=== PATIENT | male | born 1930 | race Caucasian/White ===

== ENCOUNTER 2019-09-22 07:28 | Inpatient (IN) ==
--- NOTE | 2019-09-22 08:25 | PROVIDER DOCUMENTATION ---
HPI-Male Problem - General Chief Complaint: Male Stated Complaint: PEEING BLOOD Time Seen by Provider: 09/22/19 08:00 Source: patient, family ( at bedside) Allergies/Adverse Reactions: Patient Allergies Allergy/AdvReac Type Severity Reaction Status Date / Time No Known Allergies Allergy Verified 09/22/19 08:54 Home Medications: Home Medication List Medication Instructions Recorded Confirmed Last Taken Type ATORVAstatin [Lipitor] 40 mg PO DAILY 09/21/19 09/22/19 09/21/19 History Carvedilol 6.25 mg PO DAILY 09/21/19 09/22/19 09/21/19 History Furosemide 40 mg PO DAILY 09/21/19 09/22/19 09/21/19 History Glimepiride 4 mg PO BID 09/21/19 09/22/19 09/21/19 History Sacubitril/Valsartan [Entresto 24 1 tab PO DAILY 09/21/19 09/22/19 09/21/19 History mg-26 mg Tablet] Tamsulosin [Flomax] 0.4 mg PO DAILY #30 cap 09/25/19 Unknown Rx - History of Present Illness-Male Nature of Presenting Problem: 89 YO M pmh for CHF presents with c/o fatigue and weakness. He states he has been having hematuria for 3 months. He went to urology on yesterday and had labs drawn and he was shown to be anemic. He was told to come to the ED for abnormal labs. He follows with Dr. Leiva for urology. He currently denies any pain. He is not on any anticoagulants. He states he has a procedure scheduled for 2 days from now for workup for his hematuria. Severity in ED: reports: mild Onset/Duration: reports: 1 week ago (weakness and fatigue, hematuria x 3 months) Timing: reports: still present, constant Context/Activities at Onset: reports: none Urinary Symptoms: reports: hematuria. denies: retention Similar Symptoms Previously?: Yes Recently seen or treated by another doctor?: Yes Review of Systems - Adult - REVIEW OF SYSTEMS - ADULT Constitutional: denies: chills, fever Eyes: reports: no symptoms reported Ears, Nose, Mouth & Throat: reports: no symptoms reported Cardiovascular: denies: chest pain, edema Respiratory: denies: shortness of breath, wheezing Gastrointestinal: denies: abdominal pain, constipation, nausea, rectal bleeding, vomiting Genitourinary: reports: see HPI, hematuria. denies: dysuria Musculoskeletal: reports: no symptoms reported Integumentary: reports: no symptoms reported Neurological: reports: no symptoms reported Psychiatric: reports: no symptoms reported Endocrine: reports: no symptoms reported Hematologic/Lymphatic: reports: prolonged bleeding. denies: blood clots, easy bruising Allergic/Immunologic: reports: no symptoms reported Past History - Adult - PAST MEDICAL HISTORY-ADULT Review of Records: reports: Old Records Reviewed, Medications Reviewed, Social history reviewed & non-contributory. Major Childhood Illnesses: reports: denies history Cardiovascular: reports: CHF Diabetes Type: Type 2 Diabetes controlled by:: PO Meds Other Conditions: reports: deaf/hard of hearing - PRIOR SURGERIES/PROCEDURES Surgical/Procedure History: denies: recent surgery - FAMILY HISTORY Family History: reviewed, not pertinent - SOCIAL HISTORY Smoking: denies Substance Use: denies Living Situation: family Physical Exam-General - PHYSICAL EXAM-ADULT Initial Vital Signs Reviewed: Yes - CONSTITUTIONAL General Appearance: alert, no apparent distress - EYES Eyes: PERRL/EOMI, pale conjunctivae - HEAD, EARS, NOSE, MOUTH & THROAT HENMT: hearing deficit - NECK Neck: supple - RESPIRATORY Respiratory: lungs clear - CARDIOVASCULAR Cardiovascular: regular rate, rhythm, no edema - GASTROINTESTINAL (ABDOMEN) Abdominal Exam: normal bowel sounds, non tender, soft. negative: hernia, mass - MUSCULOSKELETAL Back Exam: no CVA tenderness Extremity: normal range of motion, normal gait, normal inspection - SKIN Integumentary: pallor (mild) - NEUROLOGIC Neurologic: grossly normal, no motor/sensory deficits - PSYCHIATRIC Psych/Mental Status: normal mood/affect, normal thought content, oriented x 3 Progress - PLAN OF CARE/RESULTS Progress/Plan/Lab Results: Orders Category Date Time Status Admit - [facility] Routine AdmDCTranf 09/22/19 11:25 Active Activity - Up with Assistance ORDERED Care 09/22/19 11:25 Active Apply Mechanical Device [QM] ORDERED Care 09/22/19 11:25 Active Cardiac Monitoring DIRECTED Care 09/22/19 08:19 Completed FSBS/Accucheck Result AC + HS Care 09/22/19 11:25 Active Intake and Output-Strict ORDERED Care 09/22/19 11:25 Active Nursing- Assist w/ IS as order ORDERED Care 09/22/19 11:25 Active Nursing- MD Consult Request ROUTINE Care 09/22/19 11:25 Completed Vital Signs Order Q 8-HR ASSESS Care 09/22/19 11:25 Active Z-Document. for Tele Applied ORDERED Care 09/22/19 11:25 Completed Physician/Provider Consults Routine Cons 09/22/19 11:25 Ordered Heart Healthy Diet Diet 09/22/19 11:25 Completed A1C HGB W EST AVG GLUCOSE [CHEM] Routine Lab 09/23/19 04:57 Completed CBC WITH DIFF [HEME] DAILY Lab 09/23/19 04:57 Completed CBC WITH DIFF [HEME] DAILY Lab 09/24/19 06:40 Completed CBC WITH DIFF [HEME] DAILY Lab 09/25/19 07:05 Completed CBC WITH ELECTRONIC DIFF [HEME] Stat Lab 09/22/19 08:43 Completed COMPREHENSIVE METABOLIC PANEL [CHEM] Routine Lab 09/23/19 04:57 Completed COMPREHENSIVE METABOLIC PANEL [CHEM] Stat Lab 09/22/19 08:43 Completed HEMATOCRIT [HEME] Timed Lab 09/22/19 21:54 Completed HEMOGLOBIN [HEME] Timed Lab 09/22/19 21:54 Completed PRBC [LRPC (RED CELLS)] [BBK] Stat Lab 09/22/19 08:43 Completed TYPE & SCREEN [BBK] Stat Lab 09/22/19 08:43 Completed URINALYSIS W/POSS RFLX CULT [URINALYSIS] Stat Lab 09/22/19 08:07 Completed URINE CULTURE [RM] Routine Lab 09/22/19 08:07 Completed ATORVAstatin [Lipitor] Med 09/23/19 09:00 Discontinued 40 mg PO DAILY Acetaminophen [Tylenol] Med 09/22/19 11:25 Discontinued 650 mg PO Q6H PRN PRN Carvedilol [Coreg] Med 09/23/19 09:00 Discontinued 6.25 mg PO DAILY CefTRIAXONE [Rocephin] 1 gm Med 09/22/19 10:17 Discontinued 0.9% Sodium Chloride Inj [Ns] 50 ml IV NOW CefTRIAXONE [Rocephin] 1 gm Med 09/23/19 10:30 Discontinued 0.9% Sodium Chloride Inj [Ns] 50 ml IV Q24H Glimepiride [Amaryl] Med 09/22/19 21:00 Discontinued 4 mg PO BID Insulin Lispro [Humalog] Med 09/22/19 11:25 Discontinued See Protocol SUBQ 0700,1100,1600,2100 Ondansetron [Zofran] Med 09/22/19 11:25 Discontinued 4 mg IV Q4H PRN PRN Incentive Spirometer Routine Oth 09/22/19 11:25 Completed Telemetry [OM.EQ] Routine Oth 09/22/19 11:25 Active EKG [EKG] Stat Ther 09/22/19 08:19 Draft Transfer/Admit Order [TRANSFER] Routine Transfer 09/22/19 10:21 Completed Result Diagrams: 09/25/19 07:05 09/25/19 07:05 - EKG 1 Time of EKG reading by physician:: 09:09 EKG Read and Signed by:: Wesly Gavin Rate: 65 Rhythm: sinus with fusion complexes QRS: RBB IA Interval: normal ST Wave: normal Prior EKG Comparison: no prior EKG - CONSULTS/PCP/HOSPITALIST Notification #1 *Consult/PCP/Hospitalist*: Dr. Leiva Time Discussed: 10:02 Consult Disposition: other (states pt had low blood counts on pre-op workup, has ongoing hematuria, would like to get a CT scan w/o contrast and would like to admit to the hospitalist. Pt has procedure scheduled for ) #2 Consult: Gracie, will admit to hospitalist Time Discussed: 10:20 Consult Disposition: Will see in ED Departure - Departure Date of Disposition Decision: 09/22/19 Time of Disposition Decision: 10:19 DIAGNOSIS: Hematuria, Acute blood loss anemia Disposition: ADMITTED INPATIENT 09 Certified Medical Emergency: Emergent Condition: Stable - Critical Care Note This patient required my direct & personal management of CC.: No Attestation - Physician/ NERISSA Attestation Patient care was provided by Advanced Practice Provider:: No The physician spent face to face time with patient:: Yes Advanced Practice Provider documentation review:: Supervising physician onsite and consulted in the evaluation and care of this patient. The physician did have a face to face encounter with the patient.
[2019-09-22 09:02] LABS: URINE SOURCE CLEAN CATCH
[2019-09-22 09:11] LABS: BASO# 0.01 X1000 (0.0-0.2); BASO% 0.1 % (0.0-0.8); EOS# 0.05 X1000 (0.0-0.7); EOS% 0.7 % (0.0-10.0); IMM GRAN# 0.03 X1000 (0.0-0.04); IMM GRAN% 0.4 % (0.0-0.5); LYMPH# 1.12 X1000 (1.2-3.4); LYMPH% 15.3 % (20.5-51.1); MCH 28.8 PG (27-31); MCHC 30.4 g/dL (33-37); MCV 94.7 FL (81-99); MONO# 0.44 X1000 (0.11-0.59); MPV 11.6 FL (7.4-10.4); NEUT# 5.69 X1000 (1.4-6.5); NEUT% 77.5 % (42.2-75.2); PLT 128 X1000 (130-400); RBC 2.43 XMIL (4.7-6.1); RDW 16.4 % (11.5-14.5); WBC 7.34 X1000 (4.8-10.8)
[2019-09-22 09:12] LABS: COLOR RED; TURBIDITY URINE TURBID (CLEAR); URINE RBC TNTC /HPF (<10); URINE WBC TNTC /HPF (<10)
[2019-09-22 09:13] LABS: BILIRUBIN URINE NEGATIVE (NEGATIVE); BLOOD URINE LARGE (NEGATIVE); KETONE URINE NEGATIVE (NEGATIVE); LEUKOCYTES URINE NEGATIVE (NEGATIVE); NITRITE URINE NEGATIVE (NEGATIVE); PH URINE 6.5; SP GRAVITY URINE 1.025; UROBILINOGEN URINE NORMAL (NORMAL)
[2019-09-22 09:25] LABS: ALB/GLOB RATIO 1.6; ALBUMIN 3.5 g/dL (3.5-5.0); CALCIUM 8.7 mg/dL (8.8-10.2); POTASSIUM 4.9 mmol/L (3.5-5.1); TOTAL BILIRUBIN 0.22 mg/dL (0.20-1.00); TOTAL PROTEIN 5.7 g/dL (6.3-8.3)
--- NOTE | 2019-09-22 09:27 | EKG Report ---
Test Performed on : 09/22/2019 09:09:27 AM Test Reason : CP Blood Pressure : / mmHG Vent. Rate : 065 BPM Atrial Rate : 065 BPM P-R Int : 188 ms QRS Dur : 130 ms QT Int : 472 ms P-R-T Axes : 063 -05 093 degrees QTc Int : 490 ms Sinus rhythm. with fusion complexes Right bundle branch block Abnormal ECG When compared with ECG of 21-SEP-2019 14:02, (Unconfirmed) fusion complexes are now present Left posterior fascicular block is no longer present Nonspecific T wave abnormality now evident in Inferior leads T wave inversion now evident in Anterior leads Unconfirmed Result
[2019-09-22] MEDS ORDERED: ROCEPHIN 1 GM in NS 50 ML IV ONE (10:17)
[2019-09-22 10:46] LABS: GLUCOSE URINE 200 mg/dL (NEGATIVE); PROTEIN URINE 200 mg/dL (NEGATIVE)
[2019-09-22] MEDS: HUMALOG SUBQ SCH ×2 (11:25→18:11)
[2019-09-22] MEDS ORDERED: TYLENOL PO PRN (11:25)
[2019-09-22] MEDS ORDERED: ZOFRAN IV PRN (11:25)
[2019-09-22] MEDS ORDERED: NS 500 ML IV ONE (11:55)
[2019-09-22] MEDS ORDERED: NS 500 ML ONE (11:57)
[2019-09-22] MEDS ORDERED: ROCEPHIN ONE (16:18)
[2019-09-22] MEDS ORDERED: NS 50 ML ONE (16:19)
--- NOTE | 2019-09-22 19:26 | HISTORY AND PHYSICAL ---
PRIMARY CARE PROVIDER: Samira Resendez out of [place]. CHIEF COMPLAINT: Low blood count. Hematuria. HISTORY OF PRESENT ILLNESS: Mr. Villanueva is an 89-year-old gentleman who carries a past medical history of congestive heart failure, diabetes mellitus, hyperlipidemia, [place] without intervention years ago, anemia who has had blood transfusions in the past, hard of hearing with hearing aids who reports for the last several months he has had blood in his urine. He went to see Dr. Leiva. They him scheduled for a cystoscopic exam on . When they did his blood work yesterday, his hemoglobin and hematocrit were low. He was recommended to come to the ED. Hemoglobin and hematocrit today are 7 and 23. He does report generalized weakness, but no chest pain, shortness of breath, dizziness, nausea, vomiting, fever, or chills. No dysuria. Positive for gross hematuria. He was typed and screened and started on 2 units of packed red blood cells. He is hemodynamically stable. He does appear to have chronic kidney disease. We will hold his Entresto and Lasix overnight and recheck his kidney function in the a.m. PAST MEDICAL HISTORY: Per HPI. PAST SURGICAL HISTORY: Bilateral cataract. Fibrous cyst on neck removed. FAMILY HISTORY: Reviewed and noncontributory. SOCIAL HISTORY: He is hard of hearing with hearing aids. He is from [place]. He is . He is retired from sales of building supplies. 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 He was an ex-smoker 50 years ago, 3 packs per day. No alcohol or illicit drug use. PHYSICAL EXAMINATION: VITAL SIGNS: Temperature is 97.9 degrees, heart rate 75, respirations 20, blood pressure 165/77, O2 is 100% on room air. GENERAL: Mr. Villanueva is a pleasant 89-year-old male who is sitting up on the bed in no acute distress. HEENT: He is hard of hearing with hearing aids. Atraumatic, normocephalic. PERRL. NECK: Supple. Trachea midline. CARDIOVASCULAR: S1, S2 appreciated. No murmurs, gallops, rubs noted. RESPIRATORY: Lung sounds clear bilaterally. GI: Soft, nontender, nondistended. Positive bowel sounds 4 quadrants. LOWER EXTREMITIES: Does have some generalized edema. NEUROLOGIC: No focal deficits noted. DIAGNOSTIC DATA: EKG shows a sinus rhythm with fusion complexes and a right bundle-branch block at 65 beats per minute. LABORATORY DATA: White count 7, hemoglobin and hematocrit 7 and 23, platelet count 128,000. Sodium 141, potassium 4.9, BUN 39, creatinine 2, blood glucose is 295. Urinalysis, too numerous to count RBCs, too numerous to count WBCs, not reportable bacteria, large blood, negative nitrites, 200 glucose, urine protein. ASSESSMENT AND PLAN: 1. Gross hematuria. The patient does have cystoscopy planned with Dr. Leiva on . He requests admission. We will follow along with the patient. 2. Anemia secondary to gross hematuria as well as chronic disease. He is currently being transfused with 2 units. We will recheck his hemoglobin and hematocrit. Continue to monitor. He is currently hemodynamically stable. 3. Probable urinary tract infection. He is on Rocephin. We will continue that and await his urine culture. However, he is not complaining of any dysuria. 4. Probable chronic kidney disease with possible acute kidney injury. He is on Entresto as well as Lasix at home. We will hold those 2 medications overnight to see if there is any improvement in his hemoglobin and hematocrit. His kidney function does not show any change from his laboratory data that was taken yesterday. 5. Congestive heart failure. Again, we have held his Entresto as well as his Lasix. We will continue his beta tu. 6. Diabetes mellitus. We will continue his glimepiride. Place him on pattern blood sugars with sliding scale. Check hemoglobin A1c. 7. Hyperlipidemia. Continue his statin. 8. Further recommendation to follow physician evaluation, laboratory and diagnostic data. Dictated by ELLEN Willis for Moncho Espinoza MD Addendum: Patient seen and examined by myself. Agree with BATTER SCALER note. It reflects my assessment and plan. Patient is being admitted to hospital for persistent gross hematuria. Will transfuse one unit of blood and monitor CBC daily and consult Urology. Will monitor patient closely. cc: MD Jitendra Park MD Belinda Maples [facility]ITAL[facility]olanda
[2019-09-22] MEDS: AMARYL PO SCH (21:00)
[2019-09-22 21:58] LABS: HEMATOCRIT 27.3 % (42.0-52.0); HEMOGLOBIN 8.6 g/dL (14.0-18.0)
[2019-09-23 05:35] LABS: BASO# 0.01 X1000 (0.0-0.2); BASO% 0.1 % (0.0-0.8); EOS# 0.11 X1000 (0.0-0.7); EOS% 1.5 % (0.0-10.0); HEMATOCRIT 26.2 % (42.0-52.0); HEMOGLOBIN 8.3 g/dL (14.0-18.0); IMM GRAN# 0.03 X1000 (0.0-0.04); IMM GRAN% 0.4 % (0.0-0.5); LYMPH# 1.19 X1000 (1.2-3.4); LYMPH% 15.8 % (20.5-51.1); MCH 28.8 PG (27-31); MCHC 31.7 g/dL (33-37); MONO% 10.6 % (1.7-9.3); MPV 11.3 FL (7.4-10.4); NEUT% 71.6 % (42.2-75.2); PLT 130 X1000 (130-400); RBC 2.88 XMIL (4.7-6.1); RDW 16.8 % (11.5-14.5); WBC 7.54 X1000 (4.8-10.8)
[2019-09-23 06:39] LABS: ALB/GLOB RATIO 1.7; ALBUMIN 3.3 g/dL (3.5-5.0); CALCIUM 8.5 mg/dL (8.8-10.2); CREATININE 1.8 mg/dL (0.7-1.2); POTASSIUM 4.1 mmol/L (3.5-5.1); TOTAL BILIRUBIN 0.46 mg/dL (0.20-1.00); TOTAL PROTEIN 5.2 g/dL (6.3-8.3)
[2019-09-23] MEDS: HUMALOG SUBQ SCH ×3 (08:28→14:19)
--- NOTE | 2019-09-23 08:50 | Diag Imaging Result Doc PS360 ---
EXAM: CT ABDOMEN/PELVIS W/O CONTRAST INDICATION: Elevated PSA, 3 month history of hematuria, Anemia TECHNIQUE: This exam was performed using automated exposure control, adjustment of mA or kV according to patient size, and/or use of iterative reconstruction technique. COMPARISON: None. FINDINGS: There are bilateral small pleural effusions at the bases. There is interstitial thickening at the bases indicating mild pulmonary edema. There is cardiomegaly. The gallbladder, liver, spleen, and pancreas are grossly unremarkable. There is mild low dense nodular thickening of the adrenal glands likely representing underlying adenomas. There are several cystic-appearing renal foci. A few of the cystic appearing lesions bilaterally exhibit densities higher than that of simple fluid. These likely represent cysts containing blood products or proteinaceous debris. However, they are technically indeterminate. There is ill-defined hyperdense material at the posterior wall of the urinary bladder. This probably represents blood products. A mass cannot completely be excluded with unenhanced CT. If not contraindicated, contrast-enhanced CT of the abdomen and pelvis would be helpful. Otherwise, consider ultrasound. The prostate is enlarged. No significant pelvic or abdominal lymphadenopathy is appreciated. No focal bowel wall thickening or bowel obstruction is identified. The remainder of the GI tract is grossly unremarkable. There is extensive aortoiliac atherosclerotic calcification. There is advanced multilevel degenerative arthropathy throughout the visualized spine. There is nothing that would suggest local bony metastatic disease. IMPRESSION: 1.Hyperdense material at the posterior aspect of the urinary bladder that probably represents blood products. However, underlying mass is not excluded with unenhanced CT. 2.Enlarged prostate. 3.Multiple renal cysts with a few exhibiting increased density as compared to simple fluid likely representing internal blood products or proteinaceous debris but are technically indeterminate on unenhanced CT. 4.Small bibasilar pleural effusions and mild interstitial edema. 5.Other incidental/nonacute findings detailed above. Electronically signed by Carl Biggs 09/23/2019 8:48 AM
[2019-09-23] MEDS: ROCEPHIN 1 GM in NS 50 ML IV SCH (09:59)
[2019-09-23] MEDS: COREG PO SCH (09:59)
[2019-09-23] MEDS: AMARYL PO SCH ×2 (09:59→22:11)
[2019-09-23] MEDS: LIPITOR PO SCH (09:59)
[2019-09-23] MEDS ORDERED: PYRIDIUM PO PRN (10:58)
[2019-09-23] MEDS ORDERED: PROSCAR PO ONE (10:58)
--- NOTE | 2019-09-23 11:42 | PROGRESS NOTE ---
DATE: 09/23/2019 SUBJECTIVE: Patient reports continues to have bleeding. He got 1 unit of blood transfused and hemoglobin has increased to 8.3 today. OBJECTIVE: Vital Signs: Temperature 98.6, heart rate 72, respiratory 18, blood pressure 165/83, O2 saturation 97% on room air. General: This is an 89-year-old, male, lying in bed, in no acute distress. Cardiovascular: S1, S2 heard. No murmurs, gallops, or rubs. Regular rate and rhythm. Respiratory: Clear bilaterally to auscultation. No work of breathing or using accessory muscles. Abdomen: Soft, mildly tender to palpation in the suprapubic area with Uribe catheter in place with bloody urine. Extremities: No clubbing, cyanosis, or edema. Peripheral pulses present in both legs. Neurological: Patient alert, oriented x3. Moves 4 extremities. LABORATORY DATA: Hemoglobin is 8.3. White cell count 5.54, hematocrit 26.2 with BMP that reveals creatinine 1.8. A1c of 6.0. ASSESSMENT AND PLAN: 1. Gross hematuria. Patient has evaluated by Dr. Leiva. They have ordered a CT of the abdomen and pelvis which basically showed hyperdensity at the at the posterior aspect of the urinary bladder that most likely represent blood products, enlarged prostate, multiple renal cysts, with small bibasilar pleural effusions and mild interstitial edema. 2. At this point, patient is going to have cystoscopy tomorrow. We have transfused 1 unit of blood and we will keep checking CBC to see if we may transfuse more blood. Most likely, we will considering that he continues to have hematuria. 3. Anemia of blood loss. We will continue checking CBC daily. 4. Chronic kidney disease. At this point, we will continue to monitor this patient with BMP daily. 5. Congestive heart failure. Entresto has been held as well as Lasix. We will continue with beta tu. 6. Diabetes mellitus type 2. We will continue with sliding scale insulin and Accu-Chek before meals and also at bedtime. cc: MD MOJGAN Park
--- NOTE | 2019-09-23 18:21 | CONSULTATION ---
DATE OF CONSULTATION: 09/23/2019 CHIEF COMPLAINT: 1. Hematuria. 2. Anemia. 3. Elevated PSA. HISTORY OF PRESENT ILLNESS: Mr. Villanueva is an 89-year-old with congestive heart failure, diabetes, hyperlipidemia, prior [place], with chronic anemia, who presents in consultation regarding gross hematuria. Patient states he has had hematuria for 3 months now. The patient underwent evaluation in the office last Saturday with significant hematuria and subsequently underwent cystoscopy in the office, which was difficult to see due to the bloody urine. Uncertain what is leading to this, and due to difficulty visualization we recommended anesthetic cystoscopy, bilateral retrograde pyelograms to assess further. The patient had a renal ultrasound with no masses, hydronephrosis, or tumors within either kidney. In talking with him regarding surgery, he elected to proceed. He went to preop testing and was found to have hemoglobin and hematocrit of 7 and 23. I encouraged him to go the emergency room for evaluation and preoperative blood transfusion. The patient reports having weakness, occasional lightheadedness, but denies chest pain, shortness of breath, fevers or chills. The patient has had multiple urine cultures, which showed no bacteria. The patient recently had a PSA drawn, which returned at 75. The patient also had a 4K score which returned elevated at 94% with high concern regarding prostate cancer. I think that is likely what is leading to his symptoms of hematuria. The patient seems to be hemodynamically stable and has history of chronic kidney disease with a creatinine 1.8 today. The patient received 2 units of packed red blood cells with a mild response up to 27. The patient had a CT scan today which showed residual blood in his bladder with no obvious mass, prostate is enlarged and heterogeneous. The patient has been admitted to the hospital. PAST MEDICAL HISTORY: 1. Congestive heart failure. 2. Type 2 diabetes. 3. Hyperlipidemia. 4. Prior CO. 5. Anemia. 6. Hearing loss. PAST SURGICAL HISTORY: 1. Bilateral cataracts. 2. Neck tumor removal. ALLERGIES: None. MEDICATIONS: 1. Atorvastatin 40 mg p.o. daily. 2. Carvedilol 6.25 mg p.o. daily. 3. Lasix 40 mg p.o. daily. 4. Glimepiride 4 mg p.o. b.i.d. 5. Entresto 24/26 one tablet daily. 6. Flomax 0.4 mg p.o. FAMILY HISTORY: Denies family history of malignancy. SOCIAL HISTORY: Former smoker, approximately 50 years ago, was smoking 3 packs a day. Denies alcohol or illicit drug use. PHYSICAL EXAMINATION: Vital Signs: Blood pressure 165/83, heart rate 72, oxygen saturation 97% on room air. Temperature 98.8 degrees. General: No acute distress. Resting comfortably in bed. Alert and oriented x3. HEENT: Normocephalic, atraumatic. Pupils equal, round, reactive to light. Neck: Trachea midline. No obvious masses. Cardiovascular: Regular rate and rhythm. Respiratory: Good respiratory effort without audible, wheezing or rales. Abdomen: Soft, nontender, nondistended. No palpable masses. Genitourinary: No suprapubic tenderness. No CVA tenderness. A small amount of blood present at the meatus. Normal phallus. Bilateral testicles palpated without asymmetry. Rectal: Prior digital rectal exam was performed and documented in the office. Extremities: Lower extremities, no obvious lower extremity edema. Neurologic: Gross motor and sensory intact. LABS: White blood cell count 7.5, hemoglobin 8.3, hematocrit 26.2, platelets 130,000. Sodium 145, potassium 4.1, chloride 111, bicarbonate 20, BUN 34, creatinine 1.8, glucose 69. Urine culture without growth. CT scan from today shows no obvious renal masses or hydronephrosis. Patient has heterogeneous prostate that is enlarged. A small amount of debris is seen at the base of the bladder, likely related to blood, possible mass is seen. ASSESSMENT AND PLAN: Mr. Villanueva is an 89-year-old who is scheduled to undergo cystoscopy with bilateral retrograde pyelograms tomorrow. He was admitted after preoperative labs showed hemoglobin and hematocrit that were low. He was recommended admission to the hospitalist for blood transfusion and optimization prior to surgery. The patient has multiple comorbidities including prior myocardial infarction, congestive heart failure. In talking with him, I recommended cystoscopy and bilateral retrograde pyelograms tomorrow, possible intervention of the prostate as this likely is the etiology of his bleeding. The patient has elevated PSA at 75, and I recommended obtaining a prostate biopsy at that time. I had a long discussion with him regarding his hematuria. Currently, he seems to be asymptomatic. However, he is requiring regular blood transfusions. I think this is likely coming from the prostate itself. He has been seen by a urologist several months ago, but he did not have any intervention at that time. He has had hematuria for a long time now and likely it is chronic for him. We will assess if any intravesical pathology is seen, with any tumors or masses. The patient is voiding without issue. The patient was given prescription for finasteride, but it does not look like he has filled it. We will try him on that today as well as give him a dose of Pyridium to help with any dysuria. We will continue to monitor him from a urologic standpoint. Please call with questions or concerns. cc: Jitendra Leiva MD MTDD
[2019-09-23] MEDS: LEVAQUIN 250 MG/D5W 250 MG/50 ML IVPB IV SCH (22:06)
[2019-09-24] MEDS: HUMALOG SUBQ SCH ×5 (02:25→20:31)
[2019-09-24] MEDS ORDERED: FLEET ENEMA PR ONE (05:00)
[2019-09-24] MEDS ORDERED: DIPRIVAN 1% ONE (07:15)
[2019-09-24 07:27] LABS: BASO# 0.01 X1000 (0.0-0.2); BASO% 0.1 % (0.0-0.8); EOS# 0.06 X1000 (0.0-0.7); EOS% 0.8 % (0.0-10.0); HEMATOCRIT 26.1 % (42.0-52.0); HEMOGLOBIN 8.2 g/dL (14.0-18.0); IMM GRAN# 0.04 X1000 (0.0-0.04); IMM GRAN% 0.5 % (0.0-0.5); LYMPH# 1.27 X1000 (1.2-3.4); LYMPH% 16.9 % (20.5-51.1); MCHC 31.4 g/dL (33-37); MCV 92.2 FL (81-99); MONO# 1.12 X1000 (0.11-0.59); MONO% 14.9 % (1.7-9.3); MPV 11.4 FL (7.4-10.4); NEUT# 5.03 X1000 (1.4-6.5); NEUT% 66.8 % (42.2-75.2); PLT 129 X1000 (130-400); RBC 2.83 XMIL (4.7-6.1); RDW 16.7 % (11.5-14.5); WBC 7.53 X1000 (4.8-10.8)
[2019-09-24] MEDS ORDERED: XYLOCAINE-MPF 2% ONE (08:34)
[2019-09-24] MEDS ORDERED: ZOFRAN ONE (08:34)
[2019-09-24] MEDS ORDERED: EPHEDRINE ONE (08:34)
--- NOTE | 2019-09-24 09:14 | PROGRESS NOTE ---
DATE: 09/24/2019 SUBJECTIVE: No acute events yesterday. The patient finally made it to the floor. He states he continues to urinate candice blood. He denies any dysuria, urgency, or frequency. He describes a weak urinary stream, but has been able to empty his bladder. OBJECTIVE: Vital Signs: Temperature 97.3 degrees, heart rate 89, blood pressure 150/72, oxygen saturation 99% on room air. General: No acute distress. Resting comfortably in bed. Alert and oriented x3. Respiratory: Good respiratory effort without audible wheezing or rales. Abdomen: Soft, nontender, nondistended. No palpable masses. Genitourinary: No suprapubic tenderness. No CVA tenderness. Musculoskeletal: Moving all extremities. LABORATORY DATA: His a.m. labs have not returned. ASSESSMENT AND PLAN: Mr. Villanueva is an 89-year-old with congestive heart failure, type 2 diabetes, hyperlipidemia, and prior myocardial infarction, anemia and hearing loss, who presents in consultation regarding hematuria. The patient is scheduled to undergo cystoscopy with bowel retrograde pyelograms today in the outpatient setting. However, his preop lab showed his hemoglobin and hematocrit was low at 7 and 23. Patient was admitted has a received a blood transfusion. The patient continues to have candice blood through his urine. Uncertain what is leading to this. The patient's PSA has been significantly elevated. Concern arises that the patient has underlying prostate malignancy, likely leading to hematuria. Recommend cystoscopy with bilateral retrograde pyelograms, likely prostate biopsy and consideration for channel TURP in order to open up and allow him to urinate more efficiently. I told him that I would plan to do this today. Reviewed risks including bleeding, infection, urinary incontinence, change in ejaculatory function, erectile dysfunction, need for secondary procedures. After thorough discussion, the patient elected to proceed. We will plan to perform this later this morning. Continue n.p.o. cc: Jitendra Leiva MD [facility]
[2019-09-24] MEDS ORDERED: LASIX ONE (10:22)
[2019-09-24] MEDS: DILAUDID ONE ×2 (10:23→10:33)
--- NOTE | 2019-09-24 12:23 | Diag Imaging Result Doc PS360 ---
EXAM: RETROGRADES 2 OR 3 FILMS 09/24/2019 HISTORY: LT. RETROGRADE TECHNIQUE: 10 images 11 seconds fluoroscopy time, 3.7 mGy. COMMENT: Contrast was injected in the left ureteral orifice. Only portions of the collecting system are demonstrated. There is some apparent diverticulosis in the mid and distal ureter. There may be strictures in the distal ureter. IMPRESSION: Incomplete distention of the left collecting system. 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 Electronically signed by Seth Morales 09/24/2019 12:21 PM
[2019-09-24] MEDS: ROCEPHIN 1 GM in NS 50 ML IV SCH (12:40)
[2019-09-24] MEDS: AMARYL PO SCH ×2 (12:41→20:31)
[2019-09-24] MEDS: LIPITOR PO SCH (12:41)
[2019-09-24] MEDS: COREG PO SCH (12:42)
[2019-09-24 14:00] LABS: ALBUMIN 3.4 g/dL (3.5-5.0); CALCIUM 8.7 mg/dL (8.8-10.2); CREATININE 1.9 mg/dL (0.7-1.2); PHOSPHORUS 3.3 mg/dL (2.7-4.5); POTASSIUM 4.4 mmol/L (3.5-5.1)
--- NOTE | 2019-09-24 14:56 | PROGRESS NOTE ---
DATE: 09/24/2019 SUBJECTIVE: The patient reports feeling fine, having less bleeding of his own blood in continues irrigation. OBJECTIVE: Vital Signs: Temperature 97.8 degrees, heart rate 78 respiratory rate 18, blood pressure 179/91, O2 saturation 98% on 2 L nasal cannula. General examination: This is a 89-year- old male, lying in bed in no acute distress. Cardiovascular exam: S1, S2 heard. No murmurs, gallops, or rubs. Regular rate and rhythm. Respiratory exam: Clear bilaterally to auscultation. No work of breathing or using accessory muscles. Abdomen: Soft, a little bit tender to palpation in the suprapubic area. No organomegaly noted. Extremities: No clubbing, cyanosis, or edema. Peripheral pulses present in both legs. Neurological exam: Patient alert and oriented x3. Moves 4 extremities. LABORATORY DATA: Hemoglobin is 8.3 today. ASSESSMENT AND PLAN: 1. Gross hematuria. Patient has undergone cystoscopy today by Urology. Results still pending. We will continue to monitor. 2. Anemia of blood loss. Apparently have been stable. 3. Chronic kidney disease. Creatinine at baseline. We will continue to monitor. 4. Congestive heart failure. Patient is not on any exacerbation. We will continue to monitor. 5. Diabetes mellitus type 2. We will continue with sliding scale insulin. Accu-Chek before meals and also at bedtime. 6. Disposition: If tomorrow hemoglobin maintains the same and cleared by Urology, he can be discharged home. cc: Moncho Espinoza MD
--- NOTE | 2019-09-24 17:27 | OPERATIVE NOTE ---
PROCEDURE DATE: 09/24/2019 PREOPERATIVE DIAGNOSES: 1. Gross hematuria. 2. Elevated PSA. 3. Bladder mass. POSTOPERATIVE DIAGNOSES: 1. Gross hematuria. 2. Elevated PSA. 3. Bladder mass. PROCEDURE PERFORMED: 1. Transrectal ultrasound guided biopsy of the prostate. 2. Cystoscopy with clot evacuation. 3. Transurethral resection of bladder tumor 2 to 5 cm. 4. Transurethral resection of prostate, channel TURP. 5. Left retrograde pyelogram. SURGEON: Jitendra Leiva MD ALLEY WORKER: None. COMPLICATIONS: None. ESTIMATED BLOOD LOSS: 50 mL. SPECIMENS REMOVED: 1. Standard 12 core prostate biopsy. 2. Transurethral resection specimen. ANESTHESIA: LMA. INDICATIONS FOR PROCEDURE: Mr. Villanueva is an 89-year-old who presented to Urology Clinic complaining of gross hematuria. He states it has been present for 3 months now and he feels like it has been persistent. The patient states he has a history of enlarged prostate, but does not take any medications for it. He is seen by another urologist who recommended Flomax but he never took it. The patient states that he has been voiding without issue. The patient underwent office cystoscopy in our office, which was difficult due to his hematuria and limited ability to evaluate. Due to this, I recommended anesthetic cystoscopy with bilateral retrograde pyelograms to workup for hematuria. He has had a renal ultrasound which showed an enlarged prostate with no evidence of hydronephrosis. The patient was scheduled for 09/24/2019. However, patient was admitted to the hospital when his preop lab showed a low hemoglobin and hematocrit. The patient has been admitted and received blood transfusion and was optimized in preparation for surgery today. Due to elevated PSA in the office of 75 with a 4K score of 94%, I recommended a prostate biopsy at this time with cystoscopy and bilateral retrograde pyelograms. Risks, benefits, alternatives of procedure discussed with the patient and patient elected to proceed. The patient received preoperative antibiotics of Levaquin and has been receiving Rocephin and received a preprocedure enema. DESCRIPTION OF PROCEDURE: After informed consent was obtained the patient was brought to the operative and placed on the operative table in the supine position. A preoperative time-out was performed with all parties in agreement, including anesthesia, surgical and nursing staff. First began by performing a prostate biopsy. The patient was placed into a [id number] lateral decubitus position. A rectal exam was performed which showed enlarged prostate measuring approximately 40 g with no palpable nodules or asymmetry. No palpable firmness was appreciated. An ultrasound probe was then inserted and measurements were performed which showed a prostate volume of approximately 37.7 with a height of 4.8 with a 3.72 and length of 3.82. On ultrasound, there appeared to be a mass versus sediment inside of the bladder posterior to the median lobe arising from the median lobe itself. A large median lobe was seen protruding into the bladder itself. At which point, systematic prostate biopsies were taken starting on the right lateral and 12 standard core biopsies were performed and represented areas within the prostate itself. Multiple hypoechoic and hyperechoic areas were seen with a large median lobe that seemed to correspond to lesion within the bladder itself. Once these were performed, these were sent as separate specimen. The patient was then positioned to a dorsal lithotomy position and prepped and draped in usual sterile fashion. A 21-Lithuanian cystourethroscope was inserted through the urethra into the bladder. The patient had a normal urethra. No stricture disease or papillary lesions. Once inside the bladder, we were able to visualize the prostate which was mildly enlarged. A large amount of clot was seen adherent within the bladder itself and this was removed. Once this was removed, still a large amount of clot remained at which point the cystourethroscope was removed and a resectoscope element was then advanced through the urethra into the bladder. Once there, I was able to irrigate out using a Rigo syringe. Once a large amount of the clot was extracted, I was able to visualize then what appeared to be a papillary tumor arising from the prostate itself. Uncertain if this was true prostate cancer versus urothelial carcinoma. It did appear to arise from the prostate itself and appeared to be at the base of the bladder. The decision was made to perform a channel TURP to resect some of the tissue in the median lobe down to the base and then resect some of the specimen in order to have a pathologic diagnosis of this mass. The mass was greater than 5 cm in size. Using bipolar electrocautery, began resecting the median lobe until it was at the base of the bladder. I then carried this laterally and saw a large tumor which was resected with a good specimen. The resection was taken briefly into the urethra itself to ensure adequate specimen. The patient's prostate did not show significant obstruction and appeared to be widely patent by the end of the resection after only a few swipes of our resectoscope element. The mass seem to arise from the prostate and go up the left lateral wall and seemed to correspond to what was seen on our transrectal ultrasound. Approximately 40 to 50 percent of the mass was removed for pathologic specimen and this will be sent for analysis. Following this, I was able to cauterize the prostate and bleeding areas from the bladder itself and the bladder was cycled multiple times with no significant bleeding. At which point the ureteral orifices were easily visualized. The left ureteral orifice was seen and using the cystourethroscope open catheter was advanced into this and a retrograde pyelogram was performed which showed no evidence of obstruction and a delicate collecting system. I attempted to perform a right-sided retrograde pyelogram, but due to the fixed nature of his prostate could not adequately cannulate the right ureteral orifice, even though it visualized, we could not adequately get our scope in position to place the open-ended catheter into the ureteral orifice. There was efflux of clear, yellow urine from the right ureteral orifice. The patient had preop imaging that showed no evidence of hydronephrosis. Once this was completed, the patient's bladder was cycled again with no significant bleeding. The patient's bladder was left full and a 22-Lithuanian [address] catheter was advanced through the urethra into the bladder inflated with 30 mL sterile water and placed to drainage and continuous bladder irrigation was initiated. Drainage was light pink on a slow drip of CBI. The patient was then awoken and was taken to recovery in stable condition. cc: Jitendra Leiva MD [facility]
[2019-09-24] MEDS: LEVAQUIN 250 MG/D5W 250 MG/50 ML IVPB IV SCH (18:57)
[2019-09-25] MEDS: HUMALOG SUBQ SCH ×2 (06:13→10:09)
[2019-09-25 07:54] LABS: ALBUMIN 3.2 g/dL (3.5-5.0); CALCIUM 8.6 mg/dL (8.8-10.2); CREATININE 1.7 mg/dL (0.7-1.2); PHOSPHORUS 3.5 mg/dL (2.7-4.5); POTASSIUM 4.4 mmol/L (3.5-5.1)
[2019-09-25 07:57] LABS: BASO# 0.01 X1000 (0.0-0.2); BASO% 0.1 % (0.0-0.8); EOS# 0.11 X1000 (0.0-0.7); EOS% 1.1 % (0.0-10.0); HEMATOCRIT 33.9 % (42.0-52.0); HEMOGLOBIN 10.8 g/dL (14.0-18.0); IMM GRAN# 0.02 X1000 (0.0-0.04); IMM GRAN% 0.2 % (0.0-0.5); LYMPH# 1.51 X1000 (1.2-3.4); MCH 28.6 PG (27-31); MCHC 31.9 g/dL (33-37); MCV 89.7 FL (81-99); MONO# 1.24 X1000 (0.11-0.59); MONO% 12.3 % (1.7-9.3); MPV 11.5 FL (7.4-10.4); NEUT# 7.17 X1000 (1.4-6.5); NEUT% 71.3 % (42.2-75.2); PLT 143 X1000 (130-400); RBC 3.78 XMIL (4.7-6.1); RDW 17.1 % (11.5-14.5); WBC 10.06 X1000 (4.8-10.8)
--- NOTE | 2019-09-25 09:01 | PROGRESS NOTE ---
DATE: 09/25/2019 SUBJECTIVE: Postoperative day 1 from transrectal ultrasound guided biopsy of the prostate, cystoscopy with transurethral resection of bladder mass and channel TURP with left retrograde pyelogram. The patient did well overnight. His catheter is draining well with light pink to clear urine on continuous bladder irrigation. He denies any pelvic or suprapubic pain. Denies any clot passage. He denies having the catheter irrigated overnight. He remains afebrile with stable vital signs and is tolerating p.o. intake. The patient has not had a bowel movement but is passing flatus. OBJECTIVE: Vital signs: Temperature 98.2, heart rate 73, blood pressure 161/74, oxygenation 98% on room.General: No acute distress. Resting comfortably in bed. Alert and oriented x3. Respiratory: Good respiratory effort without audible wheezing or rales. Abdomen: Soft, nontender, nondistended. : No suprapubic tenderness. No CVA tenderness. Urethral catheter in place with very slow drip of irrigation, draining clear to very light pink. No clots seen within the catheter or catheter tubing. Musculoskeletal: Moving all extremities. LABORATORY DATA: Blood work from this morning is not returned yet. The patient received 2 units of packed red blood cells yesterday postoperatively. ASSESSMENT AND PLAN: Mr. Villanueva is an 89-year-old with congestive heart failure, type 2 diabetes, hyperlipidemia, prior myocardial infarction, anemia, hearing loss, who was evaluated for gross hematuria. The patient underwent cystoscopy with resection of bladder mass yesterday as well as left retrograde pyelogram and transrectal ultrasound guided biopsy of the prostate. Overall, patient is doing well since surgery. The patient's urine is light pink on a very slow drip with irrigation. Irrigation had been turned off this morning and it became slightly more pink but draining well at this time. The patient clinically seems to be doing well. We will plan to leave catheter in over the weekend and then try to get out on Saturday in the office. Clinically, I think patient likely could go home later today and long as he does well. We will follow up a.m. blood work to be sure his renal function and hemoglobin hematocrit responded to a blood transfusion yesterday. We will continue to monitor. Please call with questions or concerns. cc: MD MOJGAN Timmons
[2019-09-25] MEDS: LIPITOR PO SCH (09:59)
[2019-09-25] MEDS: COREG PO SCH (09:59)
[2019-09-25] MEDS: AMARYL PO SCH (09:59)
[2019-09-25] MEDS: ROCEPHIN 1 GM in NS 50 ML IV SCH (10:00)
[2019-09-25 13:08] VITALS: BP 152/61
--- NOTE | 2019-09-25 20:48 | DISCHARGE SUMMARY ---
ADMISSION DATE: 09/22/2019 DISCHARGE DATE: 09/25/2019 DISCHARGE DIAGNOSIS: Gross hematuria associated with a bladder mass, also elevated PSA. PROCEDURES: He had a transrectal biopsy of the prostate. He also had a truss and he had a TURP and he had a resection of bladder tumor and a left retrograde pyelogram. CONSULTATIONS: Jitendra Leiva MD. OTHER DISCHARGE DIAGNOSES: 1. Anemia of blood loss. 2. 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 3. CHF, systolic. 4. Type 2 diabetes HOSPITAL COURSE: Briefly, this is an 89-year-old male presenting with hematuria and anemia. His hemoglobin and hematocrit were 7 and 23 on admission. He got transfused 4 units. Platelet count was okay, coags I guess were not done. CT scan showed hyperdense material in the bladder, enlarged prostate, and multiple renal cysts. He underwent a retrograde pyelogram after Dr. Leiva evaluated the patient. His PSA was 75. He is 89 years old. He had a long discussion about biopsy at this point, but he had the biopsy of the prostate and he had resection of his bladder tumor to 5 cm and a channel TURP and a 3-way catheter was left for irrigation. The patient stabilized. His hemoglobin and hematocrit stabilized, he is up to 10 and 33 the day of discharge, has been 8 and 26, which is probably closer to his baseline. His creatinine is 1.7. His urine culture was no growth on September 25. Since he was doing okay. No significant bleeding. He still had some blood tinge to his urine but no clots. He was felt stable for discharge. I discussed the case with Dr. Leiva personally and he felt that he was stable for discharge. We would not do antibiotics at this point. DISCHARGE MEDICATIONS: Coreg 6.25 daily, Entresto 24/26 daily, Flomax probably need to do 0.4 daily--not p.r.n., Lasix 40 daily, Glimepiride 4 b.i.d., Lipitor 40 daily. DISCHARGE CONDITION: Stable. He is going to go home with the catheter per recommendations from Dr. Leiva, so we will insure that he has that done and he will go home with that and then do a voiding trial on Saturday and they will discuss biopsy results on Saturday. I am not quite sure they will have all the data back, but will go from there. 32 minute discharge. cc: MD Jitendra Wood MD Belinda Maples
== END 2019-09-25 16:41 | disposition home health service (06) | DRG 666 ==
LOC: ED 07:28 → SUATTDRO 10:33 → EDIPHOLD 10:33 → 3N 09-23 13:14
PROVIDERS: ATTEND Internal Medicine
PROC: UR.TURP (2019-09-24 08:07)